=== PATIENT | male | born 1955 | race Caucasian/White ===

== ENCOUNTER 2021-10-24 08:56 | Observation (INO) ==
[2021-10-24] MEDS ORDERED: Naloxone 0.4 MG/ML INJ IVP PRN (10:06)
[2021-10-24] MEDS ORDERED: Dextrose Gel 15 GM/37.5 ML TUBE PO PRN ×2 (10:08)
[2021-10-24] MEDS ORDERED: D5% in Water 1,000 ML IVC PRN (10:08)
[2021-10-24] MEDS ORDERED: *HR* Dextrose 50 % in Water (Syg) 50 ML SYRINGE IVP PRN (10:08)
[2021-10-24] MEDS: Insulin LISPRO 300 UNITS/3 ML VIAL SUBQ SCH ×2 (12:37→17:21)
[2021-10-24] MEDS: Nicotine 21 MG PATCH.TD24 TD SCH (12:38)
[2021-10-24] MEDS ORDERED: Insulin LISPRO 300 UNITS/3 ML VIAL SUBQ SCH (21:00)
[2021-10-25 02:24] LABS: Basophils % 0.4 %; Eosinophils # 0.2 K/mcL (0.0-0.6); Eosinophils % 1.6 %; Hematocrit 39.4 % (37.5-50.1); Hemoglobin 13.3 g/dL (12.9-16.9); Immature Granulocytes % 0.3 % (0-4); Lymphocytes # 3.2 K/mcL (0.6-4.6); Lymphocytes % 29.5 %; Mean Corpuscular HGB Conc 33.8 g/dL (31.6-35.5); Mean Corpuscular Hemoglobin 31.7 pg (28.0-33.3); Mean Platelet Volume 10.8 fL (9.4-12.4); Monocytes # 0.9 K/mcL (0.0-1.3); Monocytes % 8.3 %; Neutrophils # 6.4 K/mcL (1.6-8.9); Platelet Count 231 K/mcL (140-400); Red Blood Count 4.19 M/mcL (4.19-5.50); Red Cell Distribution Width 13.2 % (11.5-14.5); Segmented Neutrophils % 59.9 %; White Blood Count 10.7 K/mcL (4.3-11.1)
[2021-10-25 02:46] LABS: BUN/Creatinine Ratio 45 (6-26); Blood Urea Nitrogen 25 mg/dL (8-23); Carbon Dioxide 25 mEq/L (23-29); Chloride 105 mEq/L (98-107); Glucose 140 mg/dL (70-105); Osmolality,Calculated 291 (280-300); Potassium 3.4 mEq/L (3.5-5.1); Sodium 137 mEq/L (136-145)
[2021-10-25 07:05] VITALS: BP 137/87; PULSE 76; TEMP 98.1; O2SAT 95
[2021-10-25] MEDS: Finasteride 5 MG TABLET PO SCH ×2 (08:37→08:46)
[2021-10-25] MEDS: Insulin LISPRO 300 UNITS/3 ML VIAL SUBQ SCH ×2 (08:45→12:47)
[2021-10-25] MEDS: Nicotine 21 MG PATCH.TD24 TD SCH (08:46)
[2021-10-25] MEDS ORDERED: lisinopriL 10 MG TABLET PO SCH (09:00)
[2021-10-25] MEDS ORDERED: Metoprolol XL (24 HR) Succ 50 MG TAB.ER.24H PO SCH (09:00)
== END 2021-10-25 13:12 | disposition home or self-care (01) ==
LOC: 3ANU → SUATTDRO 09:52
PROVIDERS: ADMIT Internal Medicine; ATTEND Internal Medicine